=== PATIENT | female | born 1960 | race Caucasian/White ===

== ENCOUNTER → 2017-05-02 | Outpatient (CLI) | payer OTHER ==
[~2017-05-02] MED LIST: 0; ACET325 PO; ALBU90OI INH; ALBU90OI6 INH; ALBU90OI61 INH; AMOCLA500 PO; ATOR20 PO; BUPR150T2; CELE100 PO; CYCL10 PO; DULO30; DULO60 PO; EFFEXOR; GLUCOSAMINE CH1 EACH PO; HYDACE10 PO; HYDACE10B PO; HYDACE5 PO; LEVSOD50 PO; LITH300C; MELO7.5 PO; MONT10T PO; NAPR500; NAPR500 PO; OLAN5 PO; OMEP20ER PO; OMEPRAZOLE MAGN20 MG PO; OPTIFLEX-C400 MG PO; QUIN200; RANI150; RISE35 PO; RIZA10MLT; ROSU10TA; ROSU10TA PO; ROXICODONE5 MG PO; TETR250; TRAZ100 PO; TRAZ50; Verotin-Gr Cap1 EACH PO; [UNRECOGNIZED DRUG - REMARK]; [UNRECOGNIZED DRUG - REMARK]; [UNRECOGNIZED DRUG - REMARK]
[2017-05-04 13:01] LABS: HPV Genotype 16 Not Detected (NOTDET); HPV Genotype 18 Not Detected (NOTDET)
[2017-05-09 09:27] LABS: HPV High Risk Other Not Detected (NOTDET)
== END | disposition home or self-care (01) ==
LOC: LAB 14:04
PROVIDERS: Nurse Practitioner Women's Health
DX: Z12.4 Encounter for screening for malignant neoplasm of cervix (principal); Z91.89 Other specified personal risk factors, not elsewhere classified
CPT/HCPCS: 87624; G0123

== ENCOUNTER → 2018-05-06 | Outpatient (CLI) | payer OTHER ==
[~2018-05-06] MED LIST changes: +METF500C; +Metformin HCl500 MG PO; +PROGESTERONE100 MG PO
[2018-05-08 15:08] LABS: HPV 16 Negative (Negative); HPV 18 Negative (Negative); HPV OTHER HR TYPES Negative (Negative)
== END ==
LOC: LAB 09:06 → LAB SHORT 09:06
PROVIDERS: Nurse Practitioner Women's Health
DX: Z12.4 Encounter for screening for malignant neoplasm of cervix (principal)
CPT/HCPCS: 87624; G0123

== ENCOUNTER 2018-05-17 07:33 | Day surgery (SDC) | payer OTHER ==
[~2018-05-17] VITALS: Ht 165.1 cm; Wt 102.2 kg
[~2018-05-17 07:33] MED LIST changes: -METF500C; -Metformin HCl500 MG PO; -PROGESTERONE100 MG PO
[2018-05-17] MEDS ORDERED: METF500C (08:25)
[2018-05-17] MEDS ORDERED: PROGESTERONE100 MG PO (08:26)
--- NOTE | 2018-05-17 13:35 | NUR ---
05/17/18 1335 Patricia Shahid LATE ENTRY FOR TODAY AT 0945 DR. GARCIA AWARE OF PATIENT ELEVATED BP, NO ORDERS RECEIVE
[2018-06-18] MEDS ORDERED: Metformin HCl500 MG PO (08:46)
== END 2018-05-17 10:02 | disposition home or self-care (01) ==
LOC: ORSCSDS 07:33
PROVIDERS: Internal Medicine Gastroenterology
PROC: 0D758ZZ Dilation of Esophagus, Via Natural or Artificial Opening Endoscopic (ICD-10-PCS; principal; 2018-05-17 09:00)
DX: R13.10 Dysphagia, unspecified (principal); I10 Essential (primary) hypertension; E11.9 Type 2 diabetes mellitus without complications; J45.909 Unspecified asthma, uncomplicated; E66.01 Morbid (severe) obesity due to excess calories; Z68.37 Body mass index [BMI] 37.0-37.9, adult; Z79.899 Other long term (current) drug therapy
CPT/HCPCS: 82947; J0330; J1980; J2405; J7120

== ENCOUNTER 2018-07-02 08:02 | Day surgery (SDC) | payer OTHER ==
[~2018-07-02] VITALS: Ht 162.6 cm; Wt 103.0 kg
[~2018-07-02 08:02] MED LIST changes: +METF500C; +Metformin HCl500 MG PO; +PROGESTERONE100 MG PO
== END 2018-07-02 10:25 | disposition home or self-care (01) ==
LOC: ORSCSDS 08:02
PROVIDERS: Internal Medicine Gastroenterology
PROC: 0D757ZZ Dilation of Esophagus, Via Natural or Artificial Opening (ICD-10-PCS; principal; 2018-07-02 09:30)
PROC: 0DJ08ZZ Inspection of Upper Intestinal Tract, Via Natural or Artificial Opening Endoscopic (ICD-10-PCS; principal; 2018-07-02 09:30)
DX: R13.10 Dysphagia, unspecified (principal); K21.9 Gastro-esophageal reflux disease without esophagitis; I10 Essential (primary) hypertension; J44.9 Chronic obstructive pulmonary disease, unspecified; G47.33 Obstructive sleep apnea (adult) (pediatric); E66.01 Morbid (severe) obesity due to excess calories; Z68.39 Body mass index [BMI] 39.0-39.9, adult; Z79.899 Other long term (current) drug therapy
CPT/HCPCS: 82947; J2250; J2765; J3010; J7120

== ENCOUNTER 2018-08-24 07:34 | Inpatient (IN) | payer OTHER ==
[~2018-08-24] VITALS: Ht 162.6 cm; Wt 102.1 kg
[~2018-08-24 07:34] MED LIST changes: +LEVSOD25 PO; -LEVSOD50 PO
[2018-08-24 08:31] LABS: Hematocrit 47.3 % (33.0-51.0); Hemoglobin 16.5 g/dL (11.5-16.0); Mean Corpuscular HGB 34.8 pg (26.0-34.0); Mean Corpuscular HGB Conc 34.9 g/dL (31.5-36.5); Mean Corpuscular Volume 100 fL (80-100); Mean Platelet Volume 10.9 fL (9.1-12.4); Platelet Count 246 K/mm3 (150-400); RDW Coefficient Variation 12.3 % (11.7-14.2); RDW Standard Deviation 45.6 fL (35.1-46.3); Red Blood Cell Count 4.74 M/mm3 (3.80-5.20)
[2018-08-24 08:58] LABS: BAND PERCENT MAN 1 % (0-8); BASOPHILS PERCENT MAN 0 % (0-2); EOSINOPHILS PERCENT MAN 0 % (0-6); LYMPHOCYTES % ATYPICAL MANUAL 6 % (0-0); LYMPHOCYTES ABSOLUTE MAN 1.88 K/mm3 (0.84-5.20); LYMPHOCYTES PERCENT MAN 10 % (21-46); MONOCYTES ABSOLUTE MAN 0.82 K/mm3 (0.16-1.47); MONOCYTES PERCENT MAN 7 % (4-13); NEUTROPHILS ABSOLUTE MAN 9.08 K/mm3 (1.96-9.15); SEG NEUTROPHILS PERCENT MAN 76 % (41-73); TOTAL CELLS COUNTED 100
[2018-08-24] MEDS ORDERED: DIPH50 PO (09:36)
[2018-08-24] MEDS ORDERED: GLIP10ER PO (09:36)
[2018-08-24 10:30] LABS: Alanine Aminotransfer (ALT/SGP 97 U/L (12-78); Albumin, Blood 4.1 g/dL (3.4-5.0); Alk Phos 249 U/L (50-136); Anion Gap 13 mmol/L (6-16); Aspartate Aminotrans (AST/SGOT 68 U/L (12-37); Bilirubin, Total 1.2 mg/dL (0.1-1.0); Blood Urea Nitrogen 13 mg/dL (8-24); Bun/Creatinine Ratio 18.8 (12.0-20.0); CO2, Blood 28 mmol/L (21-32); Calcium, Blood 9.2 mg/dL (8.5-10.1); Chloride, Blood 97 mmol/L (98-108); Creatinine, Blood 0.69 mg/dL (0.40-1.00); Globulin, Blood 4.3 g/dL (2.2-4.0); Glomerular Filtration Rate >60 (60-); Glucose, Blood 164 mg/dL (70-99); Potassium, Blood 3.1 mmol/L (3.5-5.5); Sodium, Blood 138 mmol/L (136-145); Total Protein, Blood 8.4 g/dL (6.4-8.2); Troponin I <0.015 ng/mL (0.000-0.040)
[2018-08-24] MEDS ORDERED: BUDE10.22 INH (12:08)
[2018-08-24] MEDS ORDERED: MELA3 PO (12:08)
[2018-08-24] MEDS ORDERED: Cortisporin Ear10 M1 BOTHEARS (12:09)
--- NOTE | 2018-08-24 14:31 | NUR ---
PATIENT ARRIVED TO UNIT AT 1418. A&O X4 SBA TO TRANSFER TO BED. C/O SOB. O2 @ 2L NC. DENIES AIN. RN WILL CONTINUE TO MONITOR.
--- NOTE | 2018-08-24 18:44 | NUR ---
SHIFT SUMMARY PATIENT A&O X4, INDEP TO BATHROOM. DENIES ANY PAIN. C/O SOB W/ EXERTION. SBA TO BATHROOM. MEDICATED PER E JUN. 02 @ 3L NC, SATS >90%. NO ACUTE CHANGES THIS SHIFT. BED IN LOWEST POSITION, CALL LIGHT WITHIN REACH.
--- NOTE | 2018-08-24 21:57 | NUR ---
pATIENT REFUSED HER ZYPREXA TONIGHT - SHE SAID SHE TAKES IT IN THE AM. CALLED PHARMACY TO HAVE IT RETIMED.. PATIENT ALSO REQUESTING MELATONIN 6 MG FOR SLEEP. THIS IS THE DOSE SHE TYAKES AT HOME.- WILL JUMP INTO NEXT CALLT O HOSPITALIST
[2018-08-25 05:02] LABS: Hematocrit 43.7 % (33.0-51.0); Hemoglobin 14.9 g/dL (11.5-16.0); Mean Corpuscular HGB 34.6 pg (26.0-34.0); Mean Corpuscular HGB Conc 34.1 g/dL (31.5-36.5); Mean Corpuscular Volume 101 fL (80-100); Mean Platelet Volume 11.3 fL (9.1-12.4); Platelet Count 273 K/mm3 (150-400); RDW Coefficient Variation 12.2 % (11.7-14.2); RDW Standard Deviation 46.3 fL (35.1-46.3); Red Blood Cell Count 4.31 M/mm3 (3.80-5.20); White Blood Cell Count 9.61 K/mm3 (4.00-11.30)
[2018-08-25 05:50] LABS: Anion Gap 10 mmol/L (6-16); Blood Urea Nitrogen 19 mg/dL (8-24); Bun/Creatinine Ratio 30.9 (12.0-20.0); CO2, Blood 26 mmol/L (21-32); Calcium, Blood 9.4 mg/dL (8.5-10.1); Chloride, Blood 102 mmol/L (98-108); Creatinine, Blood 0.61 mg/dL (0.40-1.00); Glomerular Filtration Rate >60 (60-); Glucose, Blood 182 mg/dL (70-99); Potassium, Blood 3.4 mmol/L (3.5-5.5); Sodium, Blood 138 mmol/L (136-145)
--- NOTE | 2018-08-25 16:42 | NUR ---
SHIFT SUMMARY PT AXO, PLEASANT AND COOPERATIVE WITH CARE. WHISPERING THIS SHIFT. COMPLAINED OF SORE THROAT, SHAKING, AND HEADACHE. DR PENALOZA AWARE, NEW ORDERS INITIATED. PT HAD SOME BLOOD TINGED SNOT IN HER KLEENEX, HUMIDIFIER ADDED TO O2 TUBING, RT AWARE. CIWA AT 11 WAS 7 THEN WAS 4 AT 1548. PT UP INDEPENDENTLY IN ROOM, CALLS APPROPRIATELY, EDUCATED ON FALL PREVENTION. BED IN LOW POSITION, CALL LIGHT WITHIN REACH. ON 3L L O2 VIA NC. DENIES N/V
[2018-08-26 05:34] LABS: Hematocrit 44.4 % (33.0-51.0); Hemoglobin 14.8 g/dL (11.5-16.0); Mean Corpuscular HGB 34.3 pg (26.0-34.0); Mean Corpuscular HGB Conc 33.3 g/dL (31.5-36.5); Mean Corpuscular Volume 103 fL (80-100); Mean Platelet Volume 10.9 fL (9.1-12.4); Platelet Count 296 K/mm3 (150-400); RDW Coefficient Variation 12.3 % (11.7-14.2); RDW Standard Deviation 46.6 fL (35.1-46.3); Red Blood Cell Count 4.32 M/mm3 (3.80-5.20); White Blood Cell Count 12.59 K/mm3 (4.00-11.30)
[2018-08-26 05:50] LABS: Albumin, Blood 3.7 g/dL (3.4-5.0); Anion Gap 8 mmol/L (6-16); Blood Urea Nitrogen 29 mg/dL (8-24); Bun/Creatinine Ratio 41.5 (12.0-20.0); CO2, Blood 26 mmol/L (21-32); Calcium, Blood 9.1 mg/dL (8.5-10.1); Chloride, Blood 105 mmol/L (98-108); Glomerular Filtration Rate >60 (60-); Glucose, Blood 169 mg/dL (70-99); Phosphorus, Blood 4.1 mg/dL (2.5-4.9); Potassium, Blood 3.8 mmol/L (3.5-5.5); Sodium, Blood 139 mmol/L (136-145)
--- NOTE | 2018-08-26 19:01 | NUR ---
SHIFT SUMMARY- PT DENIES PAIN. DENIES SOB. RESP E/U ON 3L O2 NC. PT C/O COUGH THIS PM. MEDS GIVEN PER EMAR. DENIES N/V. SBA TO THE BATHROOM. NO OTHER SIGNIFICANT CHANGES THIS SHIFT.
--- NOTE | 2018-08-27 06:16 | NUR ---
SHIFT SUMMARY: NO ACUTE CHANGES TONIGHT.PT ON 3L VIA NC, ATTEMPTED TO WEEN DOWN TO 2L VIA NC HOWEVER PT O2 SATS <90%. A&O X 4, INDEPEDENT IN RM. COARSE WHEEZE T/O ALL LUNG MAYA. PRN TESSALON PERLES AND ROBITUSSIN ADMINISTERED FOR DRY COUGH. PT C/O HEAD R/T COUGH; ICE PACK APPLIED TO HEAD PER PT REQUEST. PT WILL D/C AFTER COMPLETION OF HOME O2 EVAL. WILL CONT TO MONITOR AND PROVIDE CARE UNTIL PRESUMED BY ONCOMING RN.
--- NOTE | 2018-08-27 14:12 | NUR ---
PT OXYGEN PT DROPPED TO 2L OF O2 VIA NC. PT SATING IN AT 93-94 ON THIS LEVEL. WITHOUT O2 PT WAS SATING AT 93. PT STATED SHE FELT THAT SHE STILL NEEDED O2 HOWEVER. WILL CONTINUE TO MONITOR.
--- NOTE | 2018-08-27 17:07 | NUR ---
SHIFT SUMMARY NO CHANGES IN ASSESSMENT AT THIS TIME. PT ON 2L O2 VIA NC. SATING IN THE 90S. VSS. PT GIVEN ONE TIME DOSE OF LASIX. PT STATED SHE VOIDED 5 TIMES. WILL CONTINUE TO MONITOR UNTIL TURNOVER IS COMPLETE. PT IN NEED OF HOME O2 EVAL BEFORE DC.
--- NOTE | 2018-08-28 00:06 | NUR ---
ANCILLARY SERVICES MANAGER CHARTS PM VITALS BEING ON ROOM AIR--ERROR. PT IS ON 2L VIA NC. SATTING @ 93-94%.
--- NOTE | 2018-08-28 05:08 | NUR ---
O2 WEENING TRIAL PT WEENED DOWN TO 1L VIA NC THIS AM. O2 SATS 92-32%. PT TOLERATES WELL, DENIES SOB. WILL CONT TO MONITOR.
--- NOTE | 2018-08-28 06:17 | NUR ---
SHIFT SUMMARY: PT CONT TO HAVE COARSE, WHEEZE LS T/O ALL LUNG MAYA. WEENED DOWN TO 1L VIA NC THIS AM; PT TOLERATING WELL. O2 SATS >92%. TESSALON PERLES AND ROBITUSSIN ADMINISTERED 2X THIS SHIFT FOR DRY COUGH. BLOOD SUGAR 260 TONIGHT; ADMINISTERED INSULIN PER LOW SS. INDEPEDENT IN RM, A&O, PLEASANT/COOPERATIVE. NO OTHER CHANGES TO REPORT, PT POSSIBLE D/C HOME TODAY. WILL CONT TO MONITOR AND PROVIDE CARE UNTIL PRESUMED BY ONCOMING RN.
[2018-08-28] MEDS ORDERED: BENZ100A PO (13:54)
[2018-08-28] MEDS ORDERED: LISI20 PO (13:56)
[2018-08-28] MEDS ORDERED: CEPACOL SORE T1 EACH MM (13:56)
[2018-08-28] MEDS ORDERED: GNP ONE DAILY400 MCG (13:58)
[2018-08-28] MEDS ORDERED: PRED10 PO (14:01)
[2018-08-28] MEDS ORDERED: ALBU3IS INH (14:02)
[2018-08-28] MEDS ORDERED: DULERA 200 MCG/13 GM INH (14:06)
--- NOTE | 2018-08-28 16:05 | NUR ---
PT DISCHARGED PT DISCHARGED IN STABLE CONDITION WITH VSS. PT EDUCATED ON DC INSTRUCTIONS * STATED NOP FURTHER QUESTIONS. PT IV REMOVED & INTACT. [facility] PT WHEELED OUT BY PROGRAM ENGAGEMENT DIRECTOR & DRIVEN HOME BY SIGNIFICANT OTHER. PT SENT HOME WITH PRINTED DC INSTRUCTIONS.
== END 2018-08-28 15:57 | disposition home or self-care (01) | DRG 189 ==
LOC: ER 07:34 → ERHOLD 11:52 → MEDS 11:52
PROVIDERS: Physician Assistant; ADMIT Internal Medicine
DX: J96.01 Acute respiratory failure with hypoxia (principal); J44.1 Chronic obstructive pulmonary disease with (acute) exacerbation; E03.9 Hypothyroidism, unspecified; F10.20 Alcohol dependence, uncomplicated; E66.9 Obesity, unspecified; G47.33 Obstructive sleep apnea (adult) (pediatric); E11.9 Type 2 diabetes mellitus without complications; K21.9 Gastro-esophageal reflux disease without esophagitis; F41.9 Anxiety disorder, unspecified; F32.9 Major depressive disorder, single episode, unspecified; E78.5 Hyperlipidemia, unspecified; M79.7 Fibromyalgia; Z87.891 Personal history of nicotine dependence; Z68.38 Body mass index [BMI] 38.0-38.9, adult
CPT/HCPCS: 36415; 71045; 71250; 80048; 80053; 80069; 82947; 83880; 84443; 84484; 85025; 85027; 93005; 93010; 94640; 94644; 94667; 94760; 94761; 96374; 98960; 99285-25; J1650; J1940; J2920; J2930

== ENCOUNTER 2018-10-02 13:32 | Emergency (ER) | payer OTHER ==
[~2018-10-02] VITALS: Ht 162.6 cm; Wt 102.1 kg
[~2018-10-02 13:32] MED LIST changes: +ALBU3IS INH; +BENZ100A PO; +BUDE10.22 INH; +CEPACOL SORE T1 EACH MM; +Cortisporin Ear10 M1 BOTHEARS; +DIPH50 PO; +DULERA 200 MCG/13 GM INH; +GLIP10ER PO; +GNP ONE DAILY400 MCG; +LISI20 PO; +MELA3 PO; +PRED10 PO
[2018-10-02 13:48] LABS: Source, Urine Clean Catch
[2018-10-02 13:53] LABS: Appearance, Urine Clear (Clear); Bilirubin, Urine Neg (Neg); Blood, Urine 1+ (Neg); Color, Urine Yellow (P-Yellow); Glucose Qualitative, Urine Neg (Neg); Ketones, Urine Neg (Neg); Leukocyte Esterase, Urine 1+ (Neg); Nitrite, Urine Neg (Neg); Protein, Urine 2+ (Neg); Urobilinogen, Urine NORM (Normal)
[2018-10-02 14:26] LABS: Bacteria Few /hpf; Red Blood Cells, Urine 0-2 /hpf (0-2); Squamous Epithelial Cells Few /hpf (Few); White Blood Cells, Urine 0-2 /hpf (0-5)
[2018-10-02 14:32] LABS: BASOPHILS ABSOLUTE AUTO 0.05 K/mm3 (0.00-0.23); BASOPHILS PERCENT AUTO 1 % (0-2); EOSINOPHILS ABSOLUTE AUTO 0.04 K/mm3 (0.00-0.68); EOSINOPHILS PERCENT AUTO 0 % (0-6); Hematocrit 41.4 % (33.0-51.0); Hemoglobin 13.8 g/dL (11.5-16.0); IMMATURE GRAN ABSOLUTE AUTO 0.04 K/mm3 (0.00-0.10); IMMATURE GRAN PERCENT AUTO 0 % (0-1); LYMPHOCYTES ABSOLUTE AUTO 1.95 K/mm3 (0.84-5.20); LYMPHOCYTES PERCENT AUTO 22 % (21-46); MONOCYTES ABSOLUTE AUTO 0.64 K/mm3 (0.16-1.47); MONOCYTES PERCENT AUTO 7 % (4-13); Mean Corpuscular HGB 34.2 pg (26.0-34.0); Mean Corpuscular HGB Conc 33.3 g/dL (31.5-36.5); Mean Corpuscular Volume 103 fL (80-100); Mean Platelet Volume 10.3 fL (9.1-12.4); NEUTROPHILS ABSOLUTE AUTO 6.23 K/mm3 (1.96-9.15); NEUTROPHILS PERCENT AUTO 70 % (41-73); Platelet Count 254 K/mm3 (150-400); RDW Coefficient Variation 13.3 % (11.7-14.2); RDW Standard Deviation 50.4 fL (35.1-46.3); Red Blood Cell Count 4.03 M/mm3 (3.80-5.20); White Blood Cell Count 8.95 K/mm3 (4.00-11.30)
[2018-10-02 14:53] LABS: Alanine Aminotransfer (ALT/SGP 66 U/L (12-78); Albumin, Blood 4.3 g/dL (3.4-5.0); Albumin/Globulin Ratio 1.2 (0.8-1.8); Alk Phos 153 U/L (50-136); Anion Gap 7 mmol/L (6-16); Aspartate Aminotrans (AST/SGOT 37 U/L (12-37); Bilirubin, Total 1.2 mg/dL (0.1-1.0); Blood Urea Nitrogen 25 mg/dL (8-24); Bun/Creatinine Ratio 31.5 (12.0-20.0); CO2, Blood 25 mmol/L (21-32); Calcium, Blood 9.5 mg/dL (8.5-10.1); Chloride, Blood 108 mmol/L (98-108); Creatinine, Blood 0.79 mg/dL (0.40-1.00); Globulin, Blood 3.6 g/dL (2.2-4.0); Glomerular Filtration Rate >60 (60-); Glucose, Blood 97 mg/dL (70-99); Potassium, Blood 4.3 mmol/L (3.5-5.5); Sodium, Blood 140 mmol/L (136-145); Total Protein, Blood 7.9 g/dL (6.4-8.2)
== END 2018-10-02 16:20 | disposition home or self-care (01) ==
LOC: ER 13:32
PROVIDERS: Physician Assistant
DX: R10.13 Epigastric pain (principal); F10.10 Alcohol abuse, uncomplicated; J45.909 Unspecified asthma, uncomplicated; F41.9 Anxiety disorder, unspecified; Z87.891 Personal history of nicotine dependence; Z88.5 Allergy status to narcotic agent; Z88.8 Allergy status to other drugs, medicaments and biological substances; Z88.2 Allergy status to sulfonamides; Z88.1 Allergy status to other antibiotic agents; Z79.899 Other long term (current) drug therapy; Z79.84 Long term (current) use of oral hypoglycemic drugs
CPT/HCPCS: 36415; 71046; 76705; 80053; 81001; 83690; 85025; 87086; 96374; 96375; 99284-25; J2405; J3010

== ENCOUNTER 2019-03-11 13:17 | Day surgery (SDC) | payer OTHER ==
[~2019-03-11] VITALS: Ht 162.6 cm; Wt 100.7 kg
[2019-03-11] MEDS ORDERED: Lisinopril2.5 MG (13:49)
--- NOTE | 2019-03-11 14:50 | NUR ---
03/11/19 7690 Priscila Corona PROCEDURE TERMINATED. PT HAD LYRNGOSPASM IMMEDIATELY UPON ENTRY OF SCOPE DESPITE 4% INHALED LIDOCAINE.
[2019-05-07] MEDS ORDERED: OMEPRAZOLE20 MG PO (10:53)
[2019-05-07] MEDS ORDERED: ALBU90OI INH (10:53)
[2019-05-07] MEDS ORDERED: MONT10T PO (10:53)
[2019-05-07] MEDS ORDERED: ATOR20 PO (10:53)
[2019-05-07] MEDS ORDERED: Cymbalta60 MG PO (10:53)
[2019-05-07] MEDS ORDERED: OLAN5 PO (10:54)
[2019-05-07] MEDS ORDERED: LEVSOD50 PO (10:54)
[2019-05-07] MEDS ORDERED: PROGESTERONE100 MG PO (10:54)
[2019-05-07] MEDS ORDERED: DULO60 PO (10:55)
[2019-05-07] MEDS ORDERED: LISI20 PO (10:55)
[2019-05-07] MEDS ORDERED: DULERA 200 MCG/13 GM INH (10:55)
[2019-05-07] MEDS ORDERED: METF500 PO (10:55)
[2019-05-07] MEDS ORDERED: MELATONIN10 M3 PO (10:56)
[2019-05-22] MEDS ORDERED: MULTIVITAMIN PO (16:23)
[2019-05-22] MEDS ORDERED: LISI20 PO (16:24)
[2019-05-22] MEDS ORDERED: POTASSIUM PO (16:27)
[2019-05-22] MEDS ORDERED: MUCOSA400 MG PO (16:27)
== END 2019-03-11 14:39 | disposition home or self-care (01) ==
LOC: ORSCSDS 13:17
PROVIDERS: Internal Medicine Gastroenterology
PROC: 0DJ08ZZ Inspection of Upper Intestinal Tract, Via Natural or Artificial Opening Endoscopic (ICD-10-PCS; principal; 2019-03-11 14:30)
DX: R10.11 Right upper quadrant pain (principal); Z53.9 Procedure and treatment not carried out, unspecified reason; I10 Essential (primary) hypertension; J45.909 Unspecified asthma, uncomplicated; G47.33 Obstructive sleep apnea (adult) (pediatric); E11.9 Type 2 diabetes mellitus without complications; E66.9 Obesity, unspecified; Z68.39 Body mass index [BMI] 39.0-39.9, adult; Z79.899 Other long term (current) drug therapy; Z79.84 Long term (current) use of oral hypoglycemic drugs
CPT/HCPCS: 82947; J2001; J2250; J2704; J7120

== ENCOUNTER → 2019-03-25 | Outpatient (CLI) | payer OTHER ==
[~2019-03-25] MED LIST changes: +Lisinopril2.5 MG
[2019-03-26 14:24] LABS: Stool Occult Bld Immuno 1 Negative (NEGATIVE)
== END | disposition home or self-care (01) ==
LOC: LAB SHORT 15:49 → LAB 15:49
PROVIDERS: Family Medicine
DX: Z12.11 Encounter for screening for malignant neoplasm of colon (principal)
CPT/HCPCS: G0328

== ENCOUNTER 2019-05-13 11:16 | Day surgery (SDC) | payer OTHER ==
[~2019-05-13] VITALS: Ht 162.6 cm; Wt 99.8 kg
[~2019-05-13 11:16] MED LIST changes: +Cymbalta60 MG PO; +LEVSOD50 PO; +MELATONIN10 M3 PO; +METF500 PO; +OMEPRAZOLE20 MG PO
--- NOTE | 2019-05-13 13:27 | NUR ---
05/13/19 1327 Ivette Howard BREATHING TREATMENT DONE PER DR BRADSHAW'S ORDERS.
--- NOTE | 2019-05-13 14:13 | NUR ---
05/13/19 1413 Anabel Edward entry: REGLAN AND ZOFRAN WERE GIVEN IN PAR PER VERBAL ORDER FROM DR. HARMONY PHILIP PER OR PROTOCOL.
[2019-05-22] MEDS ORDERED: MULTIVITAMIN PO (16:23)
[2019-05-22] MEDS ORDERED: LISI20 PO (16:24)
[2019-05-22] MEDS ORDERED: MUCOSA400 MG PO (16:27)
[2019-05-22] MEDS ORDERED: POTASSIUM PO (16:27)
== END 2019-05-13 14:45 | disposition home or self-care (01) ==
LOC: ORSCSDS 11:16
PROVIDERS: Internal Medicine Gastroenterology
PROC: 0DB58ZX Excision of Esophagus, Via Natural or Artificial Opening Endoscopic, Diagnostic (ICD-10-PCS; principal; 2019-05-13 12:45)
PROC: 0DB68ZX Excision of Stomach, Via Natural or Artificial Opening Endoscopic, Diagnostic (ICD-10-PCS; principal; 2019-05-13 12:45)
PROC: 0DB98ZX Excision of Duodenum, Via Natural or Artificial Opening Endoscopic, Diagnostic (ICD-10-PCS; principal; 2019-05-13 12:45)
DX: R10.11 Right upper quadrant pain (principal); R19.7 Diarrhea, unspecified; K21.9 Gastro-esophageal reflux disease without esophagitis; I10 Essential (primary) hypertension; E11.9 Type 2 diabetes mellitus without complications; E78.5 Hyperlipidemia, unspecified; J44.9 Chronic obstructive pulmonary disease, unspecified; Z87.891 Personal history of nicotine dependence; E66.01 Morbid (severe) obesity due to excess calories; Z68.37 Body mass index [BMI] 37.0-37.9, adult; Z79.899 Other long term (current) drug therapy
CPT/HCPCS: 82947; 88305; 88342; J0330; J2001; J2405; J2704; J2765; J3010; J7120

== ENCOUNTER 2019-05-28 08:05 | Day surgery (SDC) | payer OTHER ==
[~2019-05-28] VITALS: Ht 162.6 cm; Wt 98.7 kg
[~2019-05-28 08:05] MED LIST changes: +MUCOSA400 MG PO; +MULTIVITAMIN PO; +POTASSIUM PO
--- NOTE | 2019-05-28 09:23 | NUR ---
PT INTO DAY SURGERY VIA WC. History, Chart, Medications and Allergies reviewed before start of procedure. SLIGHT EXPIRATORY WHEEZE IN RIGHT UPPER LUNG, ALL OTHERS CTA. Patient confirms NPO status and agrees with scheduled surgery.
--- NOTE | 2019-05-28 15:56 | NUR ---
pt working with therapy at this time. spouse at bedside
--- NOTE | 2019-05-28 18:00 | NUR ---
SHIFT SUMMARY POD 0 S/P R TKA, BASHIR WRAP C/D/I WITH NO DRAINAGE NOTE. TEDS, SCDS, AND POLAR PACK IN PLACE. PAIN MANAGED WITH PO MEDICATION. WORKED WITH THERAPY, UP IN CHAIR MOST OF SHIFT. AMBULATED TO BATHROOM 2X. TOLERATING REGULAR DIET, DENIES N/V. VSS. WILL CONT. MONITOR AND GIVE REPORT TO ONCOMING RN.
--- NOTE | 2019-05-29 04:04 | NUR ---
SHIFT SUMMARY: PT POD #1 FOR RT TKA. DRESSING CDI WITH POLAR PACK IN PLACE. PAIN BEING MANAGED WITH OXY Q4 AND SCHED TORADOL AND TYLENOL PER EMAR. PT OUT OF BED TO BATHROOM WITH ONE ASSIST AND FWW. VOIDING SMALL AMOUNTS EACH TIME. CARLO PO AND DENIES N/V. PT CURRENTLY RESTING WITH HOME CPAP ON. PLAN FOR DISCHARGE TODAY.
[2019-05-29 05:52] LABS: BASOPHILS ABSOLUTE AUTO 0.03 K/mm3 (0.00-0.23); BASOPHILS PERCENT AUTO 0 % (0-2); EOSINOPHILS ABSOLUTE AUTO 0.02 K/mm3 (0.00-0.68); EOSINOPHILS PERCENT AUTO 0 % (0-6); Hematocrit 34.5 % (33.0-51.0); Hemoglobin 11.5 g/dL (11.5-16.0); IMMATURE GRAN ABSOLUTE AUTO 0.03 K/mm3 (0.00-0.10); IMMATURE GRAN PERCENT AUTO 0 % (0-1); LYMPHOCYTES ABSOLUTE AUTO 1.32 K/mm3 (0.84-5.20); LYMPHOCYTES PERCENT AUTO 12 % (21-46); MONOCYTES ABSOLUTE AUTO 0.83 K/mm3 (0.16-1.47); MONOCYTES PERCENT AUTO 8 % (4-13); Mean Corpuscular HGB Conc 33.3 g/dL (31.5-36.5); Mean Corpuscular Volume 105 fL (80-100); Mean Platelet Volume 10.5 fL (9.1-12.4); NEUTROPHILS ABSOLUTE AUTO 8.73 K/mm3 (1.96-9.15); NEUTROPHILS PERCENT AUTO 80 % (41-73); Platelet Count 213 K/mm3 (150-400); RDW Coefficient Variation 12.6 % (11.7-14.2); Red Blood Cell Count 3.29 M/mm3 (3.80-5.20); White Blood Cell Count 10.96 K/mm3 (4.00-11.30)
[2019-05-29 06:15] LABS: Magnesium, Blood 1.7 mg/dL (1.6-2.4)
[2019-05-29 06:18] LABS: Anion Gap 5 mmol/L (6-16); Blood Urea Nitrogen 23 mg/dL (8-24); Bun/Creatinine Ratio 26.8 (12.0-20.0); CO2, Blood 27 mmol/L (21-32); Calcium, Blood 8.5 mg/dL (8.5-10.1); Chloride, Blood 105 mmol/L (98-108); Creatinine, Blood 0.86 mg/dL (0.40-1.00); Glomerular Filtration Rate >60 (60-); Glucose, Blood 134 mg/dL (70-99); Potassium, Blood 4.4 mmol/L (3.5-5.5); Sodium, Blood 137 mmol/L (136-145)
--- NOTE | 2019-05-29 09:38 | NUR ---
05/29/19 0938 Olga Camejo VERIFICATIONS: EDIT CHART.
[2019-05-29] MEDS ORDERED: ENOX40I SC (14:40)
[2019-05-29] MEDS ORDERED: Bactrim Ds Tab1 EACH PO (14:41)
[2019-05-29] MEDS ORDERED: ASPI325EC PO (14:41)
--- NOTE | 2019-05-29 15:30 | NUR ---
PATIENT D/C'D HOME WITH SO AT THIS TIME. PATIENT STATES UNDERSTANDING OF MEDS, WOUND CARE, OP PT, F/U APPT, ETC. TOLERATING PO. PATIENT STATES PAIN CONTROLLED WITH PO PAIN MED. DRESSING TO R KNEE D&I. CIRC CHECKS WNL. NO ACUTE CHANGES OR C/O AT THIS TIME.
--- NOTE | 2019-05-29 15:59 | NUR ---
Advance Directive education conducted. Patient is in the DC process and Abigail, who was introduced as her is present. Patient expressed interest so I explained the purpose and process of the advance directive, I handed patient the booklet and went through the sections and explained the filing process. Patient stated that she and Abigail would go through the material and then file it with her PCP.
[2019-05-30] MEDS ORDERED: Voltaren100 GM TOP (02:24)
== END 2019-05-29 15:32 | disposition home or self-care (01) ==
LOC: ORSCMMR 08:05 → ORD 09:45 → ORSCMMR 09:45 → SURS 12:32 → ORSCMMR 05-29 15:32
PROVIDERS: Orthopaedic Surgery
PROC: 0SRC0J9 Replacement of Right Knee Joint with Synthetic Substitute, Cemented, Open Approach (ICD-10-PCS; principal; 2019-05-28 09:45)
PROC: 8E0YXBZ Computer Assisted Procedure of Lower Extremity (ICD-10-PCS; principal; 2019-05-28 09:45)
DX: M17.11 Unilateral primary osteoarthritis, right knee (principal); I10 Essential (primary) hypertension; E11.9 Type 2 diabetes mellitus without complications; J44.9 Chronic obstructive pulmonary disease, unspecified; Z87.891 Personal history of nicotine dependence; Z79.84 Long term (current) use of oral hypoglycemic drugs; F41.8 Other specified anxiety disorders; Z79.899 Other long term (current) drug therapy
CPT/HCPCS: 36415; 73560-RT; 80048; 82947; 83735; 85025; 88300; 97110; 97116; 97162; 97530; C1713; C1776; J0171; J0690; J0735; J1650; J1885; J2250; J2795; J3370; J7120

== ENCOUNTER 2019-10-21 12:47 | Day surgery (SDC) | payer OTHER ==
[~2019-10-21] VITALS: Ht 165.1 cm; Wt 97.4 kg
[~2019-10-21 12:47] MED LIST changes: +ASPI325EC PO; +Bactrim Ds Tab1 EACH PO; +ENOX40I SC; +Voltaren100 GM TOP
--- NOTE | 2019-10-21 13:34 | NUR ---
10/21/19 1334 Abigail Fagan TWO IV ATTEMPTS. ONE IN RW, ONE IN RH, VALVE. ONE SUCCESSFUL IN RAC PT TOW
== END 2019-10-21 15:04 | disposition home or self-care (01) ==
LOC: ORSCSDS 12:47
PROVIDERS: Internal Medicine Gastroenterology
PROC: 0DBE8ZX Excision of Large Intestine, Via Natural or Artificial Opening Endoscopic, Diagnostic (ICD-10-PCS; principal; 2019-10-21 14:00)
DX: R10.11 Right upper quadrant pain (principal); R19.7 Diarrhea, unspecified; I10 Essential (primary) hypertension; E11.9 Type 2 diabetes mellitus without complications; G47.33 Obstructive sleep apnea (adult) (pediatric); Z87.891 Personal history of nicotine dependence; E66.9 Obesity, unspecified; Z68.35 Body mass index [BMI] 35.0-35.9, adult; Z79.84 Long term (current) use of oral hypoglycemic drugs; Z79.899 Other long term (current) drug therapy
CPT/HCPCS: 82947; 88305; J2704; J7120

== ENCOUNTER 2020-04-16 16:44 | Emergency (ER) | payer OTHER ==
[~2020-04-16] VITALS: Ht 162.6 cm; Wt 98.4 kg
[2020-04-16 17:17] LABS: BASOPHILS ABSOLUTE AUTO 0.04 K/mm3 (0.00-0.23); BASOPHILS PERCENT AUTO 1 % (0-2); EOSINOPHILS ABSOLUTE AUTO 0.06 K/mm3 (0.00-0.68); EOSINOPHILS PERCENT AUTO 1 % (0-6); Hemoglobin 11.9 g/dL (11.5-16.0); IMMATURE GRAN ABSOLUTE AUTO 0.04 K/mm3 (0.00-0.10); IMMATURE GRAN PERCENT AUTO 1 % (0-1); LYMPHOCYTES PERCENT AUTO 19 % (21-46); MONOCYTES ABSOLUTE AUTO 0.53 K/mm3 (0.16-1.47); MONOCYTES PERCENT AUTO 6 % (4-13); Mean Corpuscular HGB 34.7 pg (26.0-34.0); Mean Corpuscular HGB Conc 32.2 g/dL (31.5-36.5); Mean Corpuscular Volume 108 fL (80-100); Mean Platelet Volume 10.3 fL (9.1-12.4); NEUTROPHILS PERCENT AUTO 74 % (41-73); Platelet Count 245 K/mm3 (150-400); RDW Coefficient Variation 13.7 % (11.7-14.2); RDW Standard Deviation 54.2 fL (35.1-46.3); Red Blood Cell Count 3.43 M/mm3 (3.80-5.20); White Blood Cell Count 8.67 K/mm3 (4.00-11.30)
[2020-04-16 17:42] LABS: Alanine Aminotransfer (ALT/SGP 86 U/L (12-78); Albumin, Blood 3.7 g/dL (3.4-5.0); Albumin/Globulin Ratio 1.4 (0.8-1.8); Alk Phos 197 U/L (50-136); Anion Gap 10 mmol/L (6-16); Aspartate Aminotrans (AST/SGOT 69 U/L (12-37); Bilirubin, Total 0.8 mg/dL (0.1-1.0); Blood Urea Nitrogen 10 mg/dL (8-24); Bun/Creatinine Ratio 14.1 (12.0-20.0); CO2, Blood 22 mmol/L (21-32); Calcium, Blood 8.5 mg/dL (8.5-10.1); Chloride, Blood 110 mmol/L (98-108); Creatinine, Blood 0.71 mg/dL (0.40-1.00); Globulin, Blood 2.6 g/dL (2.2-4.0); Glomerular Filtration Rate >60 (60-); Glucose, Blood 81 mg/dL (70-99); Potassium, Blood 3.6 mmol/L (3.5-5.5); Sodium, Blood 142 mmol/L (136-145); Total Protein, Blood 6.3 g/dL (6.4-8.2); Troponin I <0.015 ng/mL (0.000-0.040)
[2020-04-16] MEDS ORDERED: GUAI600T33 PO (21:39)
== END 2020-04-16 21:47 | disposition home or self-care (01) ==
LOC: ER 16:44
PROVIDERS: Physician Assistant
DX: J06.9 Acute upper respiratory infection, unspecified (principal); F41.9 Anxiety disorder, unspecified; R07.9 Chest pain, unspecified; K21.9 Gastro-esophageal reflux disease without esophagitis; I10 Essential (primary) hypertension; J44.9 Chronic obstructive pulmonary disease, unspecified; E03.9 Hypothyroidism, unspecified; F32.9 Major depressive disorder, single episode, unspecified; E78.5 Hyperlipidemia, unspecified; Z79.899 Other long term (current) drug therapy; Z79.84 Long term (current) use of oral hypoglycemic drugs; Z88.5 Allergy status to narcotic agent; Z88.6 Allergy status to analgesic agent; Z88.2 Allergy status to sulfonamides; Z88.1 Allergy status to other antibiotic agents; Z79.51 Long term (current) use of inhaled steroids; Z87.891 Personal history of nicotine dependence
CPT/HCPCS: 36415; 71046; 80053; 84484; 85025; 93005; 93010; 96374; 96375; 99285-25; J2060; J2930

== ENCOUNTER 2020-07-28 08:31 | Day surgery (SDC) | payer OTHER ==
[~2020-07-28] VITALS: Ht 165.1 cm; Wt 96.0 kg
[~2020-07-28 08:31] MED LIST changes: +EUTHYROX50 MCG PO; +GUAI600T33 PO; -LEVSOD50 PO; +MIRT30 PO
[2020-07-28] MEDS ORDERED: DULERA 100 MCG/13 GM INH (09:04)
--- NOTE | 2020-07-28 10:11 | NUR ---
Ambulatory in Day Surgery History, Chart, Medications and Allergies reviewed before start of procedure.Lungs clear T/O to Auscultation. Pre-Op teaching done. Pt verbalizes understanding.
--- NOTE | 2020-07-28 11:53 | NUR ---
07/28/20 1153 Caitlin Malloy BONE FRAGMENTS DISCARDED PER SURGEON
--- NOTE | 2020-07-29 03:48 | NUR ---
SHIFT SUMMARY POD1 L TKA WITH DR. RIVAS. PT AOX4. PT REPORTS PAIN 1-5 T/O SHIFT. PAIN MANAGED WITH TORADOL, TYLENOL AND 5MG OXY. PT DENIES NUMBNESS AND TINGLING SENSATION. POLAR PACK IN PLACED ON L KNEE WITH BASHIR WRAP, CDI. PT AMBULATING IN BATHROOM WITH 1 MIN ASSIST, FWW AND GB. INFUSING LR WITH ABX. TOLERATING ADA DIET DENIES N/V. CBG AT 170 LAST NIGHT MEDICATED WITH 1 UNIT HUMILIN. VSS. USE O2 AT 2L FOR COMFORT HX SLEEP APNEA, USES CPAP AT HOME BUT PREFER TO USE O2 LAST NIGHT FOR SLEEP. PT COMFORTABLE IN BED AT THIS TIME, SLEPT MOST OF THE T/O THE SHIFT. PT DENIES PASSING FLATUS. CALL LIGHT W/IN REACH. WILL PROVIDE REPORT TO UPCOMING AM NURSE.
[2020-07-29 04:36] LABS: BASOPHILS ABSOLUTE AUTO 0.03 K/mm3 (0.00-0.23); BASOPHILS PERCENT AUTO 0 % (0-2); EOSINOPHILS ABSOLUTE AUTO 0.01 K/mm3 (0.00-0.68); EOSINOPHILS PERCENT AUTO 0 % (0-6); Hematocrit 37.1 % (33.0-51.0); Hemoglobin 12.7 g/dL (11.5-16.0); IMMATURE GRAN ABSOLUTE AUTO 0.04 K/mm3 (0.00-0.10); IMMATURE GRAN PERCENT AUTO 0 % (0-1); LYMPHOCYTES ABSOLUTE AUTO 1.24 K/mm3 (0.84-5.20); LYMPHOCYTES PERCENT AUTO 11 % (21-46); MONOCYTES ABSOLUTE AUTO 0.82 K/mm3 (0.16-1.47); MONOCYTES PERCENT AUTO 7 % (4-13); Mean Corpuscular HGB 35.9 pg (26.0-34.0); Mean Corpuscular HGB Conc 34.2 g/dL (31.5-36.5); Mean Corpuscular Volume 105 fL (80-100); Mean Platelet Volume 10.4 fL (9.1-12.4); NEUTROPHILS ABSOLUTE AUTO 9.45 K/mm3 (1.96-9.15); NEUTROPHILS PERCENT AUTO 82 % (41-73); Platelet Count 207 K/mm3 (150-400); RDW Coefficient Variation 12.4 % (11.7-14.2); RDW Standard Deviation 48.5 fL (35.1-46.3); Red Blood Cell Count 3.54 M/mm3 (3.80-5.20); White Blood Cell Count 11.59 K/mm3 (4.00-11.30)
[2020-07-29 04:56] LABS: Anion Gap 6 mmol/L (6-16); Blood Urea Nitrogen 25 mg/dL (8-24); Bun/Creatinine Ratio 26.6 (12.0-20.0); CO2, Blood 27 mmol/L (21-32); Calcium, Blood 8.6 mg/dL (8.5-10.1); Chloride, Blood 104 mmol/L (98-108); Creatinine, Blood 0.94 mg/dL (0.40-1.00); Glomerular Filtration Rate >60 (60-); Glucose, Blood 138 mg/dL (70-99); Magnesium, Blood 1.9 mg/dL (1.6-2.4); Potassium, Blood 4.9 mmol/L (3.5-5.5); Sodium, Blood 137 mmol/L (136-145)
[2020-07-29] MEDS ORDERED: CLIN150 PO (10:04)
[2020-07-29] MEDS ORDERED: ENOX40I SC (10:06)
[2020-07-29] MEDS ORDERED: ROXICODONE5 MG PO (10:07)
[2020-07-29] MEDS ORDERED: PROM25 PO (10:08)
[2020-07-29] MEDS ORDERED: Aspirin EC81 MG PO (10:15)
--- NOTE | 2020-07-29 15:42 | NUR ---
1535 discharged to home pt reports pain is well controlled, esau po food and fluids without nausea, left knee dressing dry and intact. pt ambulating in room using walker and steady on feet. pt states she feels ready to be discharged to home
== END 2020-07-29 15:45 | disposition home or self-care (01) ==
LOC: ORSCMMR 08:31 → ORD 11:00 → SURS 13:57 → ORSCMMR 07-29 15:45 → SURS 07-29 15:45
PROVIDERS: Orthopaedic Surgery
PROC: 0SRD0J9 Replacement of Left Knee Joint with Synthetic Substitute, Cemented, Open Approach (ICD-10-PCS; principal; 2020-07-28 11:00)
PROC: 8E0YXBZ Computer Assisted Procedure of Lower Extremity (ICD-10-PCS; principal; 2020-07-28 11:00)
DX: M17.12 Unilateral primary osteoarthritis, left knee (principal); I10 Essential (primary) hypertension; E11.9 Type 2 diabetes mellitus without complications; G47.33 Obstructive sleep apnea (adult) (pediatric); E03.9 Hypothyroidism, unspecified; E66.9 Obesity, unspecified; Z68.35 Body mass index [BMI] 35.0-35.9, adult; Z79.899 Other long term (current) drug therapy
CPT/HCPCS: 36415; 73560-LT; 80048; 82947; 83735; 85025; 94640; 94760; 97110; 97116; 97162; A9270; C1713; C1776; J0171; J0690; J0735; J1100; J1650; J1815; J1885; J2250; J2370; J2405; J2704; J2795; J3010; J3370; J7120

== ENCOUNTER 2023-01-03 05:53 | Observation (INO) | payer OTHER ==
[2023-01-03] VITALS (30 sets, daily range): BP systolic 71–112; BP diastolic 41–76
[~2023-01-03] VITALS: Ht 160 cm; Wt 68.3 kg
[~2023-01-03 05:53] MED LIST changes: +Aspirin EC81 MG PO; +CLIN150 PO; +DULERA 100 MCG/13 GM INH; +MELATONIN2.5 MG PO; +PROM25 PO
--- NOTE | 2023-01-03 07:56 | NUR ---
Ambulatory in Day Surgery with SBA. History, Chart, Medications and Allergies reviewed before start of procedure. Patient confirms NPO status and agrees with scheduled surgery. Pre-Op teaching done. Pt verbalizes understanding. Patient reports completing Chlorhexadine shower X1 prior to admission to hospital. Patient States Post-Procedure ride home has been arranged. Surgical site prepped with 2% Chlorhexidine cloth wipe.
--- NOTE | 2023-01-03 08:49 | NUR ---
01/03/23 0849 Santa Otto INTERSCALENE BLOCK COMPLETED BY DR. FRAGA IN THE OR BEFORE INTUBATION. PT TOLERATED WELL.
--- NOTE | 2023-01-03 11:56 | NUR ---
PT IS HYPOTENSTIVE, TACHY, SLEEPY. RESPONDS TO VERBAL COMMANDS. NOTIFIED DR. FRAGA AND DR. RIVAS. ORDER TO GIVE 500ML BOLUS.
--- NOTE | 2023-01-03 12:18 | NUR ---
5OOML LACTATED RINGER BOLUS GIVEN. PT REMAINS HYPOTENSIVE AND TACHY. VERY SLEEPY. SHAKIRA IS CONCERNED ABOUT TAKING HER HOME AT THIS POINT, STATING AMBULATING FROM THE DRIVE WAY TO THE DOOR IS A LONG UP H[place] TRAVEL. NOTIFIED CHARGE NURSE TO REQUEST EXTENDED RECOVERY FROM . NURSING WOOD MOLDER NOTIFIED.
[2023-01-03 13:22] LABS: Hematocrit 33.3 % (33.0-51.0); Hemoglobin 11.9 g/dL (11.5-16.0); Mean Corpuscular HGB 38.5 pg (26.0-34.0); Mean Corpuscular HGB Conc 35.7 g/dL (31.5-36.5); Mean Corpuscular Volume 108 fL (80-100); Mean Platelet Volume 10.9 fL (9.1-12.4); Platelet Count 157 K/mm3 (150-400); RDW Coefficient Variation 13.1 % (11.7-14.2); RDW Standard Deviation 51.9 fL (35.1-46.3); Red Blood Cell Count 3.09 M/mm3 (3.80-5.20); White Blood Cell Count 8.84 K/mm3 (4.00-11.30)
[2023-01-03 13:36] LABS: Calcium, Blood 8.4 mg/dL (8.5-10.1); Potassium, Blood 4.8 mmol/L (3.5-5.5)
[2023-01-03 14:00] LABS: BAND PERCENT MAN 7 % (0-8); BASOPHILS PERCENT MAN 0 % (0-2); EOSINOPHILS PERCENT MAN 0 % (0-6); LYMPHOCYTES ABSOLUTE MAN 0.44 K/mm3 (0.84-5.20); LYMPHOCYTES PERCENT MAN 5 % (21-46); MONOCYTES ABSOLUTE MAN 0.08 K/mm3 (0.16-1.47); MONOCYTES PERCENT MAN 1 % (4-13); SEG NEUTROPHILS PERCENT MAN 87 % (41-73); TOTAL CELLS COUNTED 100
--- NOTE | 2023-01-03 16:24 | NUR ---
SHIFT SUMMARY PT A&OX4, VSS/RA(SATS 94%), UP TO CHAIR/AMB 1 PP MIN ASSIST TO BRP W/GB, CARLO PO, REP PAIN 0/10, VOIDING. S/P R TSA, BULKY DRESSING, SLING ON, ELEVATED, NWB. WILL REPORT TO ONCOMING NOC RN.
[2023-01-04 02:44] VITALS: BP 111/66
[2023-01-04 04:24] LABS: Hematocrit 31.9 % (33.0-51.0); Hemoglobin 11.3 g/dL (11.5-16.0); Mean Corpuscular HGB 38.6 pg (26.0-34.0); Mean Corpuscular HGB Conc 35.4 g/dL (31.5-36.5); Mean Corpuscular Volume 109 fL (80-100); Platelet Count 167 K/mm3 (150-400); RDW Coefficient Variation 13.1 % (11.7-14.2); RDW Standard Deviation 52.7 fL (35.1-46.3); Red Blood Cell Count 2.93 M/mm3 (3.80-5.20); White Blood Cell Count 9.67 K/mm3 (4.00-11.30)
--- NOTE | 2023-01-04 04:30 | NUR ---
SHIFT SUMMARY POD 1 R TSA PT A&O X4, BULKY DRESSING IN PLACE ON R SHOULDER C/D/I. UP TO THE BATHROOM MULTIPLE TIMES T/O NIGHT, 1 PERSON ASST WITH AIT BELT. REPORTS LITTLE PAIN, MEDICATED PER EMAR. VSS. NO OTHER CONCERNS. PLAN TO DISCHARGE TODAY. CALL LIGHT WITHIN REACH.
[2023-01-04 04:43] LABS: Bun/Creatinine Ratio 11.7 (12.0-20.0); Calcium, Blood 8.2 mg/dL (8.5-10.1); Creatinine, Blood 1.11 mg/dL (0.40-1.00); Potassium, Blood 4.5 mmol/L (3.5-5.5)
[2023-01-04 07:42] VITALS: BP 102/64
--- NOTE | 2023-01-04 11:58 | NUR ---
DISCHARGE NOTE: PATIENT AND PATIENTS DAUGHTER WERE EDUCATED ON DISCHARGE INSTRUCTIONS. BOTH VERBALIZED UNDERSTANDING OF INSTRUCTIONS AND HAD NO FURTHER QUESTIONS AT THIS TIME. HER RIGHT SHOULDER HAS AN AQUACEL DRESSING THAT IS C/D/I AND IS IN HER IMMOBILIZER. SHE DENIES NUMBNESS AND TINGLING IN ALL EXTREMITIES AND IS ABLE TO MOVE ALL FINGERS AND TOES. HER PAIN IS MANAGED WITH PO PAIN MEDS. SHE IS DRESSED AND HAS PERSONAL ITEMS IN THE ROOM GATHERED. SHE IS BEING WHEELCHAIRED OUT TO HER DAUGHTERS CAR TO BE TAKEN HOME.
== END 2023-01-04 12:00 | disposition home or self-care (01) ==
LOC: ORSCMMR 05:53 → ORSCSDS 07:30 → SURS 09:46 → ORSCMMR 09:47 → SURS 13:37
PROVIDERS: Anesthesiology; Orthopaedic Surgery; ADMIT Internal Medicine
PROC: 0RPJ0JZ Removal of Synthetic Substitute from Right Shoulder Joint, Open Approach (ICD-10-PCS; principal; 2023-01-03 07:30)
PROC: 0RRJ0JZ Replacement of Right Shoulder Joint with Synthetic Substitute, Open Approach (ICD-10-PCS; principal; 2023-01-03 07:30)
DX: M19.011 Primary osteoarthritis, right shoulder (principal); I95.81 Postprocedural hypotension; G47.33 Obstructive sleep apnea (adult) (pediatric); J44.9 Chronic obstructive pulmonary disease, unspecified; E03.9 Hypothyroidism, unspecified; E11.9 Type 2 diabetes mellitus without complications; E78.5 Hyperlipidemia, unspecified; K21.9 Gastro-esophageal reflux disease without esophagitis; F10.90 Alcohol use, unspecified, uncomplicated; Z79.84 Long term (current) use of oral hypoglycemic drugs
CPT/HCPCS: 36415; 73030; 80048; 82947; 84443; 84484; 85025; 85027; 94760; A9270; C1713; C1776; J0696; J1100; J1650; J1885; J2371; J2405; J2704; J3010; J3370; J7030; J7120

== ENCOUNTER 2023-05-15 07:21 | Inpatient (IN) | payer OTHER ==
[~2023-05-15] VITALS: Ht 162.6 cm; Wt 73.0 kg
[2023-05-15] MEDS ORDERED: PROGESTERONE5000 GM (07:53)
[2023-05-15] MEDS ORDERED: ATORVASTATIN CA20 MG PO (07:53)
[2023-05-15] MEDS ORDERED: DULOXETINE HCL60 M1 PO (07:53)
[2023-05-15] MEDS ORDERED: FLUTICASONE-SA1 EAC9 INH (07:54)
[2023-05-15] MEDS ORDERED: MONT10T PO (07:54)
[2023-05-15] MEDS ORDERED: Ventolin/Prove6.7 GM INH (07:54)
[2023-05-15] MEDS ORDERED: OMEP20ER PO (07:54)
[2023-05-15] MEDS ORDERED: METFORMIN HCL500 M2 PO (07:54)
[2023-05-15] MEDS ORDERED: OLANZAPINE5 M1 PO (07:54)
[2023-05-15] MEDS ORDERED: LISI20 PO (07:55)
[2023-05-15 08:41] LABS: Influenza A, PCR NEGATIVE (NEGATIVE); Influenza B, PCR NEGATIVE (NEGATIVE); SARS-Cov-2 (COVID-19) PCR, MMC NEGATIVE (NEGATIVE)
[2023-05-15 08:42] LABS: Resp Syncytial Virus, PCR POSITIVE (NEGATIVE)
[2023-05-15 09:36] LABS: BASOPHILS ABSOLUTE AUTO 0.04 K/mm3 (0.00-0.23); BASOPHILS PERCENT AUTO 1 % (0-2); EOSINOPHILS ABSOLUTE AUTO 0.01 K/mm3 (0.00-0.68); EOSINOPHILS PERCENT AUTO 0 % (0-6); Hematocrit 34.5 % (33.0-51.0); Hemoglobin 12.1 g/dL (11.5-16.0); IMMATURE GRAN ABSOLUTE AUTO 0.03 K/mm3 (0.00-0.10); IMMATURE GRAN PERCENT AUTO 1 % (0-1); LYMPHOCYTES ABSOLUTE AUTO 0.87 K/mm3 (0.84-5.20); LYMPHOCYTES PERCENT AUTO 15 % (21-46); MONOCYTES ABSOLUTE AUTO 0.62 K/mm3 (0.16-1.47); MONOCYTES PERCENT AUTO 11 % (4-13); Mean Corpuscular HGB 37.2 pg (26.0-34.0); Mean Corpuscular HGB Conc 35.1 g/dL (31.5-36.5); Mean Corpuscular Volume 106 fL (80-100); Mean Platelet Volume 10.2 fL (9.1-12.4); NEUTROPHILS ABSOLUTE AUTO 4.19 K/mm3 (1.96-9.15); NEUTROPHILS PERCENT AUTO 73 % (41-73); Platelet Count 164 K/mm3 (150-400); RDW Standard Deviation 58.6 fL (35.1-46.3); Red Blood Cell Count 3.25 M/mm3 (3.80-5.20); White Blood Cell Count 5.76 K/mm3 (4.00-11.30)
[2023-05-15 10:07] LABS: Albumin, Blood 3.5 g/dL (3.4-5.0); Albumin/Globulin Ratio 0.9 (0.8-1.8); Bilirubin, Total 0.8 mg/dL (0.1-1.0); Bun/Creatinine Ratio 23.2 (12.0-20.0); Calcium, Blood 8.8 mg/dL (8.5-10.1); Creatinine, Blood 0.43 mg/dL (0.40-1.00); Potassium, Blood 4.1 mmol/L (3.5-5.5); Total Protein, Blood 7.5 g/dL (6.4-8.2)
[2023-05-15] MEDS ORDERED: LEVOTHYROXINE50 MC9 PO (14:42)
[2023-05-15] MEDS ORDERED: PROG100 PO (14:42)
[2023-05-15 15:57] VITALS: BP 134/69
--- NOTE | 2023-05-15 19:01 | NUR ---
SHIFT SUMMARY/ADMISSION NOTE: PT IS A 62 YEAR OLD FEMALE HERE FOR ACUTE RESPIRATORY DISTRESS RELATED TO RSV. SHE IS REQUIRING 3 L OF N/C O2 TO MAINTAIN OXYGEN SATURATION LEVELS GREATER THAN 92%. SHE ALSO HAS A HISTORY OF ETOH 4-5 BOTTLE OF WINE DAILY. EXPLAINED TO PATIENT THE POTENTIAL OF ALCOHOL WITHDRAWAL WHILE SHE IS IN THE HOSPITAL AND WHO WE MANAGE WITHDRAWAL AND PATIENT UNDERSTOOD. SHE STATES THAT SHE DOESN'T EAT MUCH DUE TO DRINKING WINE. HER MOST RECENT CIWA WAS A 6. SHE IS IN BED, CALL LIGHT WITHIN REACH, NO SIGNS OR SYMPTOMS OF DISTRESS. PLAN OF CARE ONGOING.
[2023-05-15 20:05] VITALS: BP 140/81
[2023-05-16 03:22] VITALS: BP 133/78
--- NOTE | 2023-05-16 04:17 | NUR ---
Shift Summary Pt had increased CIWA score tonight up to 9 with sweating, severe headache, and mild anxiety. Earlier in the shift I gave tramadol for headache but it only got worse. Later I gave 2 mg IV Ativan for ETOH withdrawal and she slept well for hours. Upon waking she impulsivley got out of bed and took her NC off, her O2 sat quickly dropped to 83%. Pt stated her headache was gone, and she was able to be reoriented to her situation easily. She is 1 assist to the BSC and cooperative with care.
[2023-05-16 06:32] LABS: BASOPHILS ABSOLUTE AUTO 0.03 K/mm3 (0.00-0.23); BASOPHILS PERCENT AUTO 1 % (0-2); EOSINOPHILS ABSOLUTE AUTO 0.01 K/mm3 (0.00-0.68); EOSINOPHILS PERCENT AUTO 0 % (0-6); Hematocrit 31.6 % (33.0-51.0); IMMATURE GRAN ABSOLUTE AUTO 0.01 K/mm3 (0.00-0.10); IMMATURE GRAN PERCENT AUTO 0 % (0-1); LYMPHOCYTES ABSOLUTE AUTO 1.21 K/mm3 (0.84-5.20); LYMPHOCYTES PERCENT AUTO 24 % (21-46); MONOCYTES ABSOLUTE AUTO 0.53 K/mm3 (0.16-1.47); MONOCYTES PERCENT AUTO 10 % (4-13); Mean Corpuscular HGB 37.7 pg (26.0-34.0); Mean Corpuscular HGB Conc 34.8 g/dL (31.5-36.5); Mean Corpuscular Volume 108 fL (80-100); Mean Platelet Volume 10.2 fL (9.1-12.4); NEUTROPHILS ABSOLUTE AUTO 3.29 K/mm3 (1.96-9.15); NEUTROPHILS PERCENT AUTO 65 % (41-73); Platelet Count 127 K/mm3 (150-400); RDW Coefficient Variation 15.3 % (11.7-14.2); RDW Standard Deviation 60.4 fL (35.1-46.3); Red Blood Cell Count 2.92 M/mm3 (3.80-5.20); White Blood Cell Count 5.08 K/mm3 (4.00-11.30)
[2023-05-16 06:56] LABS: Albumin, Blood 3.1 g/dL (3.4-5.0); Albumin/Globulin Ratio 0.9 (0.8-1.8); Bun/Creatinine Ratio 21.8 (12.0-20.0); Calcium, Blood 8.9 mg/dL (8.5-10.1); Creatinine, Blood 0.6 mg/dL (0.40-1.00); Globulin, Blood 3.3 g/dL (2.2-4.0); Potassium, Blood 3.6 mmol/L (3.5-5.5); Total Protein, Blood 6.4 g/dL (6.4-8.2)
[2023-05-16 07:31] VITALS: BP 128/78
--- NOTE | 2023-05-16 18:44 | NUR ---
PT IS DROWSY AND ORIENTED X4. LAST CIWA 8, TREATED PER EMAR. PT SLEPT MOST OF THE SHIFT. CALM AND COOPERATIVE. SBA ASSIST TO BATHROOM DUE TO MEDICATIONS BUT CAN AMBULATE INDEPENDENTLY, CALLS APPROPRIATELY. 4L NC, WILL DESAT TO HIGH 70S ON R/A AND WHEN SLEEPING. EDUCATED IMPORTANCE OF CALLING BEFORE NAP SO THAT WE CAN PLACE CPAP ON. PT AGREES BUT FALLS ASLEEP WITHOUT REALIZING. BIOX CONTINUES. REQUIRES FREQUENT REMINDERS TO TAKE DEEP BREATHS THROUGH NOSE. HACKING COUGH. TREATED PER EMAR. BED IS IN THE LOWEST POSITION WITH CALL LIGHT IN REACH
[2023-05-17 04:25] VITALS: BP 131/81
--- NOTE | 2023-05-17 05:08 | NUR ---
SHIFT SUMMARY: RESTING IN BED THIS SHIFT, NON PRODUCTIVE DRY COUGH OBSERVED, COUGH TREATED PER EMAR, A&O X4, C/O HEADACHE TREATED WITH TRAMADOL, UP TO BATHROOM WITH ASSISTANCE FROM STAFF, NO SIGNS OF WITHDRAWAL OBSERVED THIS SHIFT, 4L NC.
[2023-05-17 05:32] LABS: BASOPHILS ABSOLUTE AUTO 0.03 K/mm3 (0.00-0.23); BASOPHILS PERCENT AUTO 1 % (0-2); EOSINOPHILS ABSOLUTE AUTO 0.03 K/mm3 (0.00-0.68); EOSINOPHILS PERCENT AUTO 1 % (0-6); Hematocrit 31.8 % (33.0-51.0); Hemoglobin 11.3 g/dL (11.5-16.0); IMMATURE GRAN ABSOLUTE AUTO 0.01 K/mm3 (0.00-0.10); IMMATURE GRAN PERCENT AUTO 0 % (0-1); LYMPHOCYTES PERCENT AUTO 33 % (21-46); MONOCYTES ABSOLUTE AUTO 0.37 K/mm3 (0.16-1.47); MONOCYTES PERCENT AUTO 7 % (4-13); Mean Corpuscular HGB 38.2 pg (26.0-34.0); Mean Corpuscular HGB Conc 35.5 g/dL (31.5-36.5); Mean Corpuscular Volume 107 fL (80-100); Mean Platelet Volume 10.4 fL (9.1-12.4); NEUTROPHILS ABSOLUTE AUTO 3.04 K/mm3 (1.96-9.15); NEUTROPHILS PERCENT AUTO 59 % (41-73); Platelet Count 118 K/mm3 (150-400); RDW Coefficient Variation 14.8 % (11.7-14.2); RDW Standard Deviation 58.7 fL (35.1-46.3); Red Blood Cell Count 2.96 M/mm3 (3.80-5.20); White Blood Cell Count 5.18 K/mm3 (4.00-11.30)
[2023-05-17 06:50] LABS: Percent Saturation 11.3 % (15.0-50.0)
[2023-05-17 06:56] LABS: Albumin, Blood 2.9 g/dL (3.4-5.0); Albumin/Globulin Ratio 0.9 (0.8-1.8); Bun/Creatinine Ratio 26.4 (12.0-20.0); Calcium, Blood 8.9 mg/dL (8.5-10.1); Creatinine, Blood 0.57 mg/dL (0.40-1.00); Globulin, Blood 3.3 g/dL (2.2-4.0); Potassium, Blood 3.5 mmol/L (3.5-5.5); Total Protein, Blood 6.2 g/dL (6.4-8.2)
[2023-05-17 07:27] VITALS: BP 126/89
--- NOTE | 2023-05-17 17:22 | NUR ---
PT IS ALERT AND ORIENTED X4. VERY TIRED, UNABLE TO SLEEP BECAUSE OF COUGH. TREATED PER EMAR. REQUIRED 2 PRN BREATHING TREATMENTS THIS SHIFT. COUGH IS HARSH AND DRY. 3L NC TO MAINTAIN SATS >90. INDEPENDENT TO THE BATHROOM. CALLS APPROPRIATELY. PT PO INTAKE INCREASED THROUGHOUT THE DAY. SHE REPORTED FEELING SLIGHTLY BETTER THAN YESTERDAY BUT HER COUGH IS BOTHERING HER. CPAP AT BEDSIDE.
[2023-05-17 19:44] VITALS: BP 128/72
[2023-05-18 02:34] VITALS: BP 134/67
--- NOTE | 2023-05-18 04:48 | NUR ---
SHIFT SUMMARY: CONTINUES TO HAVE DRY NON PRODUCTIVE COUGH, MEDS GIVEN PER EMAR, C/O PAIN AND MEDICATED PER EMAR, UP TO BATHROOM INDEPENDANTLY, 4L NC THIS SHIFT, ENCOURAGED TO REPOSITION AND OFF LOAD BUTTOCKS TO RELIEVE RED AREA THIS SHIFT.
[2023-05-18 06:36] LABS: BASOPHILS ABSOLUTE AUTO 0.03 K/mm3 (0.00-0.23); BASOPHILS PERCENT AUTO 1 % (0-2); EOSINOPHILS ABSOLUTE AUTO 0.04 K/mm3 (0.00-0.68); EOSINOPHILS PERCENT AUTO 1 % (0-6); Hematocrit 31.9 % (33.0-51.0); Hemoglobin 11.1 g/dL (11.5-16.0); IMMATURE GRAN ABSOLUTE AUTO 0.01 K/mm3 (0.00-0.10); IMMATURE GRAN PERCENT AUTO 0 % (0-1); LYMPHOCYTES ABSOLUTE AUTO 2.35 K/mm3 (0.84-5.20); LYMPHOCYTES PERCENT AUTO 42 % (21-46); MONOCYTES ABSOLUTE AUTO 0.56 K/mm3 (0.16-1.47); MONOCYTES PERCENT AUTO 10 % (4-13); Mean Corpuscular HGB 37.2 pg (26.0-34.0); Mean Corpuscular HGB Conc 34.8 g/dL (31.5-36.5); Mean Corpuscular Volume 107 fL (80-100); Mean Platelet Volume 10.8 fL (9.1-12.4); NEUTROPHILS ABSOLUTE AUTO 2.58 K/mm3 (1.96-9.15); NEUTROPHILS PERCENT AUTO 46 % (41-73); Platelet Count 140 K/mm3 (150-400); RDW Coefficient Variation 14.4 % (11.7-14.2); RDW Standard Deviation 56.8 fL (35.1-46.3); Red Blood Cell Count 2.98 M/mm3 (3.80-5.20); White Blood Cell Count 5.57 K/mm3 (4.00-11.30)
[2023-05-18 07:21] LABS: Albumin, Blood 2.8 g/dL (3.4-5.0); Albumin/Globulin Ratio 0.8 (0.8-1.8); Bilirubin, Total 0.9 mg/dL (0.1-1.0); Bun/Creatinine Ratio 25.5 (12.0-20.0); Calcium, Blood 8.9 mg/dL (8.5-10.1); Creatinine, Blood 0.59 mg/dL (0.40-1.00); Globulin, Blood 3.5 g/dL (2.2-4.0); Potassium, Blood 3.1 mmol/L (3.5-5.5); Total Protein, Blood 6.3 g/dL (6.4-8.2)
[2023-05-18 10:45] LABS: Stool Occult Blood Guaiac 1 Pos (Neg)
[2023-05-18 16:08] VITALS: BP 110/66
--- NOTE | 2023-05-18 17:52 | NUR ---
PT ALERT AND ORIENTED X4. INDEPENDENT, WILL CALL APPROPRIATELY. SEVERE HARSH HACKING COUGH, WORSE TODAY THAN YESTERDAY. DR. CATHERINE NOTIFIED, PLS SEE UPDATED EMAR. HEADACHE ALSO CONSTANT SECONDARY TO COUGH. 2X PRN BREATHING TREATMENTS TODAY. PT WHEEZING AND CHEST IS TIGHT. 3L NC STILL NEEDED TO MAINTAIN O2 SAT >90%.
--- NOTE | 2023-05-18 19:12 | NUR ---
SPOKE WITH PHARMACIST, SADIE, FOR CLARIFICATION ON GUAIFENESIN MEDICATIONS. PER PHARMACIST, IT IS OK TO GIVE ALL MEDICATIONS ORDERED
[2023-05-18 19:59] VITALS: BP 127/73
[2023-05-19 03:44] VITALS: BP 132/81
--- NOTE | 2023-05-19 04:29 | NUR ---
SHIFT SUMMARY PATIENT COUGHING ON/OFF. ROBITUSSIN D GIVEN WITH GOOD EFFECT. ABLE TO SLEEP WITH REDUCED COUGH. REPORTED HEAD BACK PAIN X TWO AND ULTRAM AND NORCO GIVEN PER EMAR ALTERNATING. AXOX 3 AND INDEPENDENT IN ROOM. ON 3L O2 NC. VSS/AFEBRILE. DENIES CHEST PAIN AND NV. NEW PIV PLACED. CALL LIGHT IN REACH. BED IN LOWEST POSITION. WILL CONTINUE TO MONITOR UNTIL DAY SHIFT NURSE ASSUMES CARE.
[2023-05-19 06:40] LABS: Hematocrit 33.2 % (33.0-51.0); Hemoglobin 11.5 g/dL (11.5-16.0); Mean Corpuscular HGB 37.7 pg (26.0-34.0); Mean Corpuscular HGB Conc 34.6 g/dL (31.5-36.5); Mean Corpuscular Volume 109 fL (80-100); Mean Platelet Volume 10.9 fL (9.1-12.4); Platelet Count 146 K/mm3 (150-400); RDW Coefficient Variation 14.6 % (11.7-14.2); RDW Standard Deviation 58.8 fL (35.1-46.3); Red Blood Cell Count 3.05 M/mm3 (3.80-5.20); White Blood Cell Count 5.86 K/mm3 (4.00-11.30)
[2023-05-19 07:14] LABS: Albumin/Globulin Ratio 0.9 (0.8-1.8); Bilirubin, Total 0.7 mg/dL (0.1-1.0); Bun/Creatinine Ratio 28.4 (12.0-20.0); Creatinine, Blood 0.67 mg/dL (0.40-1.00); Globulin, Blood 3.4 g/dL (2.2-4.0); Potassium, Blood 3.6 mmol/L (3.5-5.5); Total Protein, Blood 6.4 g/dL (6.4-8.2)
[2023-05-19 07:22] LABS: BAND PERCENT MAN 1 % (0-8); BASOPHILS PERCENT MAN 0 % (0-2); EOSINOPHILS PERCENT MAN 0 % (0-6); LYMPHOCYTES % ATYPICAL MANUAL 1 % (0-0); LYMPHOCYTES ABSOLUTE MAN 2.81 K/mm3 (0.84-5.20); LYMPHOCYTES PERCENT MAN 47 % (21-46); MONOCYTES ABSOLUTE MAN 0.52 K/mm3 (0.16-1.47); MONOCYTES PERCENT MAN 9 % (4-13); NEUTROPHILS ABSOLUTE MAN 2.51 K/mm3 (1.96-9.15); SEG NEUTROPHILS PERCENT MAN 42 % (41-73); TOTAL CELLS COUNTED 100
[2023-05-19 07:32] VITALS: BP 126/83
[2023-05-19] MEDS ORDERED: ALBU2.5V5 INH (11:06)
[2023-05-19] MEDS ORDERED: BENZ100A PO (11:07)
[2023-05-19] MEDS ORDERED: Q-Tussin100 MG/5 M PO (11:07)
[2023-05-19] MEDS ORDERED: GUAI600T33 PO (11:07)
[2023-05-19] MEDS ORDERED: TRAM50 PO (11:08)
[2023-05-19] MEDS ORDERED: PRED20 PO (11:08)
--- NOTE | 2023-05-19 14:21 | NUR ---
discharge reviewed with pt she verbalized understanding. meds and instruct. iv pulled intact. no tele. pt wheeled to door by aide.
== END 2023-05-19 14:18 | disposition home or self-care (01) | DRG 189 ==
LOC: ER 07:21 → MEDS 13:05
PROVIDERS: Emergency Medicine; Physician Assistant; ADMIT Family Medicine
DX: J96.01 Acute respiratory failure with hypoxia (principal); J06.9 Acute upper respiratory infection, unspecified; B97.4 Respiratory syncytial virus as the cause of diseases classified elsewhere; F10.10 Alcohol abuse, uncomplicated; R19.5 Other fecal abnormalities; I10 Essential (primary) hypertension; F41.9 Anxiety disorder, unspecified; M79.7 Fibromyalgia; F32.A Depression, unspecified; E78.5 Hyperlipidemia, unspecified; D69.6 Thrombocytopenia, unspecified; G47.30 Sleep apnea, unspecified; R74.01 Elevation of levels of liver transaminase levels; D64.9 Anemia, unspecified; K21.9 Gastro-esophageal reflux disease without esophagitis; J44.9 Chronic obstructive pulmonary disease, unspecified; M19.90 Unspecified osteoarthritis, unspecified site; Z79.84 Long term (current) use of oral hypoglycemic drugs; Z87.891 Personal history of nicotine dependence; Z79.51 Long term (current) use of inhaled steroids; Z11.52 Encounter for screening for COVID-19
CPT/HCPCS: 0241U; 36415; 71046; 76705; 80053; 82270; 82607; 82728; 82746; 82947; 83540; 83550; 83690; 85025; 94640; 94660; 94664; 94761; 94762; 96361; 96374; 99285-25; A9270; C9113; J1815; J2060; J2405; J7030; J7512

== ENCOUNTER 2023-08-12 06:31 | Emergency (ER) | payer OTHER ==
[~2023-08-12] VITALS: Ht 162.6 cm; Wt 70.3 kg
[~2023-08-12 06:31] MED LIST changes: +ALBU2.5V5 INH; +AMOCLA875 PO; +ATORVASTATIN CA20 MG PO; +AZIT250 PO; +DULOXETINE HCL60 M1 PO; +FLUTICASONE-SA1 EAC9 INH; +LEVOTHYROXINE50 MC9 PO; +METFORMIN HCL500 M2 PO; +OLANZAPINE5 M1 PO; +PRED20 PO; +PROG100 PO; +PROGESTERONE5000 GM; +Q-Tussin100 MG/5 M PO; +TRAM50 PO; +Ventolin/Prove6.7 GM INH
[2023-08-12 07:41] LABS: BASOPHILS ABSOLUTE AUTO 0.04 K/mm3 (0.00-0.23); BASOPHILS PERCENT AUTO 1 % (0-2); EOSINOPHILS ABSOLUTE AUTO 0.09 K/mm3 (0.00-0.68); EOSINOPHILS PERCENT AUTO 2 % (0-6); Hematocrit 35.8 % (33.0-51.0); Hemoglobin 12.3 g/dL (11.5-16.0); IMMATURE GRAN ABSOLUTE AUTO 0.02 K/mm3 (0.00-0.10); IMMATURE GRAN PERCENT AUTO 0 % (0-1); LYMPHOCYTES ABSOLUTE AUTO 1.94 K/mm3 (0.84-5.20); LYMPHOCYTES PERCENT AUTO 32 % (21-46); MONOCYTES ABSOLUTE AUTO 0.36 K/mm3 (0.16-1.47); MONOCYTES PERCENT AUTO 6 % (4-13); Mean Corpuscular HGB 36.3 pg (26.0-34.0); Mean Corpuscular HGB Conc 34.4 g/dL (31.5-36.5); Mean Corpuscular Volume 106 fL (80-100); Mean Platelet Volume 9.7 fL (9.1-12.4); NEUTROPHILS ABSOLUTE AUTO 3.59 K/mm3 (1.96-9.15); NEUTROPHILS PERCENT AUTO 59 % (41-73); Platelet Count 168 K/mm3 (150-400); RDW Coefficient Variation 14.8 % (11.7-14.2); RDW Standard Deviation 57.5 fL (35.1-46.3); Red Blood Cell Count 3.39 M/mm3 (3.80-5.20); White Blood Cell Count 6.04 K/mm3 (4.00-11.30)
[2023-08-12 08:03] LABS: Albumin, Blood 3.9 g/dL (3.4-5.0); Albumin/Globulin Ratio 1.2 (0.8-1.8); Bilirubin, Total 0.7 mg/dL (0.1-1.0); Bun/Creatinine Ratio 18.5 (12.0-20.0); Calcium, Blood 9.2 mg/dL (8.5-10.1); Creatinine, Blood 0.65 mg/dL (0.40-1.00); Globulin, Blood 3.3 g/dL (2.2-4.0); Potassium, Blood 3.7 mmol/L (3.5-5.5); Total Protein, Blood 7.2 g/dL (6.4-8.2)
[2023-08-12] MEDS ORDERED: DIPH50 PO (08:08)
[2023-08-12] MEDS ORDERED: DULERA 100 MCG/13 GM (08:09)
[2023-08-12] MEDS ORDERED: PROAIR DIGIHAL90 MCG (08:09)
[2023-08-12] MEDS ORDERED: MELATONIN5 M1 PO (08:09)
[2023-08-12] MEDS ORDERED: NS 1,000 ML IV SCH (08:45)
[2023-08-12] MEDS ORDERED: Ipratropium/Albuterol SulF 2.5-0.5MG/3 ML Amp INH ONE (08:45)
[2023-08-12] MEDS ORDERED: MethylPREDNISolone Sod Succ 125 MG Vial IV ONE (08:45)
[2023-08-12 09:06] LABS: Influenza A, PCR NEGATIVE (NEGATIVE); Influenza B, PCR NEGATIVE (NEGATIVE); Resp Syncytial Virus, PCR NEGATIVE (NEGATIVE); SARS-Cov-2 (COVID-19) PCR, MMC NEGATIVE (NEGATIVE)
[2023-08-12] MEDS ORDERED: DiphenhydrAMINE HCl 50 MG/ML 1ML Vial IV ONE (09:35)
[2023-08-12] MEDS ORDERED: DiphenhydrAMINE HCl 50 MG/ML 1ML Vial ONE (09:36)
[2023-08-12] MEDS ORDERED: Famotidine 10 MG/ML 2ML Vial IV ONE (09:40)
[2023-08-12] MEDS ORDERED: EPINEPHrine HCL 11.25 MG/0.5 ML VIAL ONE (09:41)
[2023-08-12] MEDS ORDERED: EpiNEPhrine 1 MG/1 ML 1ML Vial ONE (09:44)
[2023-08-12] MEDS ORDERED: EPINEPhrine HCl 1 MG/ML 1ML Amp IM ONE (09:45)
[2023-08-12] MEDS ORDERED: Albuterol 2.5 MG/3 ML VIAL INH ONE (10:00)
[2023-08-12] MEDS ORDERED: EPINEPHrine HCL 11.25 MG/0.5 ML VIAL INH ONE (10:00)
[2023-08-12 13:00] VITALS: BP 129/79
[2023-08-12] MEDS ORDERED: EZ TWIST TUBIN1 EACH INH (13:23)
[2023-08-12] MEDS ORDERED: PRED20 PO (13:23)
[2023-08-12] MEDS ORDERED: IPRAT-ALBUT 0.5-3 ML INH (13:23)
[2023-08-12] MEDS ORDERED: FAMO20 PO (13:23)
[2023-08-12] MEDS ORDERED: EPIPEN0.3 MG/0.1 IM (13:23)
[2023-08-12] MEDS ORDERED: COMPRESSOR NEB1 EACH INH (13:23)
[2023-08-13] MEDS ORDERED: Hydroxyzine HCl50 MG PO (00:33)
== END 2023-08-12 13:57 | disposition home or self-care (01) ==
LOC: ER 06:31
PROVIDERS: Student in an Organized Health Care Education/Training Program
DX: J44.1 Chronic obstructive pulmonary disease with (acute) exacerbation (principal); J44.89 Other specified chronic obstructive pulmonary disease; Z87.891 Personal history of nicotine dependence; K21.9 Gastro-esophageal reflux disease without esophagitis; I10 Essential (primary) hypertension; G47.30 Sleep apnea, unspecified; M19.90 Unspecified osteoarthritis, unspecified site; E78.5 Hyperlipidemia, unspecified; M79.7 Fibromyalgia; Z79.84 Long term (current) use of oral hypoglycemic drugs; Z79.899 Other long term (current) drug therapy; Z88.1 Allergy status to other antibiotic agents; Z88.2 Allergy status to sulfonamides; Z88.8 Allergy status to other drugs, medicaments and biological substances; F41.9 Anxiety disorder, unspecified; F10.10 Alcohol abuse, uncomplicated; E11.9 Type 2 diabetes mellitus without complications; G89.29 Other chronic pain; Z79.52 Long term (current) use of systemic steroids
CPT/HCPCS: 0241U; 71046; 80053; 82803; 83880; 84484; 85025; 93005; 93010; 94640; 94664; 96372-59; 96374; 96375; 99285-25; J0171; J1200; J2930; J7030

== ENCOUNTER 2024-06-09 08:06 | Day surgery (SDC) | payer OTHER ==
[~2024-06-09] VITALS: Ht 165.1 cm; Wt 83.0 kg
[~2024-06-09 08:06] MED LIST changes: +COMPRESSOR NEB1 EACH INH; +DULERA 100 MCG/13 GM; +EPIPEN0.3 MG/0.1 IM; +EZ TWIST TUBIN1 EACH INH; +FAMO20 PO; +Hydroxyzine HCl50 MG PO; +IPRAT-ALBUT 0.5-3 ML INH; +MELATONIN5 M1 PO; +PROAIR DIGIHAL90 MCG
[2024-06-09] MEDS ORDERED: CeFAZolin Sodium 2,000 MG VIAL ONE (08:37)
[2024-06-09] MEDS ORDERED: Lactated Ringer's 1,000 ML IV ONE (08:45)
[2024-06-09] MEDS ORDERED: DULO60 PO (08:51)
[2024-06-09] MEDS ORDERED: Midazolam HCl 1MG / ML 2ML Vial ONE (09:30)
[2024-06-09] MEDS ORDERED: Phenylephrine HCl 100 MCG/ML-NS 10MLSYR (1MG/10ML) ONE (09:30)
[2024-06-09] MEDS ORDERED: propofoL 20 ML IV ONE (09:30)
--- NOTE | 2024-06-09 10:26 | NUR ---
06/09/[address] AT BEDSIDE FOR NERVE BLOCK PROCEDURE. PT GIVEN VERSED, PLACED ON MONITORS AND 2L OR BY NC. T/O AT 1009 START TIME 1014, STOP TIME 1019. PT CARLO WELL.
--- NOTE | 2024-06-09 11:41 | NUR ---
06/09/[address] EDMONDS FOR CONSULT WITH CASE.
--- NOTE | 2024-06-09 12:38 | NUR ---
06/09/24 1238 Kierra Fernández UPON ARRIVAL TO PACU, PT'S O2 SAT IS 85% ON RA. PLACED 4L/NC ON PT & O2 SAT INCREASED TO 93%. UPON DEEP BREATHING & COUGHING, PT'S O2 SAT INCREASED TO 96%. O2 DECREASED TO 2L/NC, O2 SAT REMAINS 94%. PT DENIES PAIN/NAUSEA.
[2024-06-09 13:06] VITALS: BP 108/67
--- NOTE | 2024-06-09 13:27 | NUR ---
06/09/24 1327 Kierra Fernández D/C INSTRUCTIONS GIVEN TO PT & PT'S SPOUSE, UNDERSTANDING VERBALIZED. PT LEAVING W/ SLING IN PLACE & ICE PACK. PT ALSO LEAVING W/ HARD COPY OF PAIN RX IN D/C PACKET. PT WHEELED TO BATHROOM TO VOID BEFORE D/C. PT HAS ALL BELONGINGS W/ HER. STEADY GAIT NOTED UPON TRANSFER FROM TO VEHICLE. NO VISIBLE SIGNS OF DISTRESS NOTED.
== END 2024-06-09 13:27 | disposition home or self-care (01) ==
LOC: ORSCSDS 08:06
PROVIDERS: Orthopaedic Surgery
PROC: 0RQT0ZZ Repair Left Carpometacarpal Joint, Open Approach (ICD-10-PCS; principal; 2024-06-09 09:45)
DX: M18.12 Unilateral primary osteoarthritis of first carpometacarpal joint, left hand (principal); E11.22 Type 2 diabetes mellitus with diabetic chronic kidney disease; I12.9 Hypertensive chronic kidney disease with stage 1 through stage 4 chronic kidney disease, or unspecified chronic kidney disease; N18.9 Chronic kidney disease, unspecified; G47.33 Obstructive sleep apnea (adult) (pediatric); J44.89 Other specified chronic obstructive pulmonary disease; E03.9 Hypothyroidism, unspecified; F41.9 Anxiety disorder, unspecified; F32.A Depression, unspecified; Z79.84 Long term (current) use of oral hypoglycemic drugs; Z79.899 Other long term (current) drug therapy; E66.9 Obesity, unspecified; Z68.30 Body mass index [BMI] 30.0-30.9, adult
CPT/HCPCS: 82947; C1713; J0690; J2250; J2371; J2704

== ENCOUNTER 2024-07-30 07:04 | Day surgery (SDC) | payer OTHER ==
[2024-07-30] MEDS ORDERED: Lactated Ringer's 1,000 ML IV ONE (07:20)
[2024-07-30] MEDS ORDERED: propofoL 50 ML IV ONE (07:21)
[2024-07-30] MEDS ORDERED: Lidocaine HCl 4% 5 ML SDA ONE (07:21)
[2024-07-30] MEDS ORDERED: Esmolol HCL 10 MG/ML 10ML VIAL ONE (07:39)
[2024-07-30] MEDS ORDERED: Midazolam HCl 1MG / ML 2ML Vial ONE (07:39)
--- NOTE | 2024-07-30 08:02 | NUR ---
07/30/24 0802 CRUZITO NAIDU PT CAME INTO PREOP DIAPHORETIC AND VOMITTING. PT C/O "FREEZING" REFUSING ICE PACK OR COLD WASH CLOTH. DR DUONG ORDERED 12 LEAD SHOWING SVT; VAGAL MANEUVER; BEARING DOWN WHILE LEGS UP AND LAYING WITH HEAD BELOW KNEES; ESMOLO GIVEN BRING PT OUT OF SVT. PT STILL TACHICARDIC AND HEART BLOCK ACCORDING TO SECOND EKG. PT BEING TAKEN BY WC TO ED AND TOLD TO F/U WITH HER DEPARTMENT SUPERVISOR.
[2024-07-30 08:49] VITALS: BP 109/91
== END 2024-07-30 08:56 | disposition other institution (70) ==
LOC: ORSCSDS 07:04
DX: R13.10 Dysphagia, unspecified (principal); R74.8 Abnormal levels of other serum enzymes; K76.0 Fatty (change of) liver, not elsewhere classified; R19.5 Other fecal abnormalities; Z53.9 Procedure and treatment not carried out, unspecified reason; I47.10 Supraventricular tachycardia, unspecified; E87.6 Hypokalemia; J44.89 Other specified chronic obstructive pulmonary disease; E11.9 Type 2 diabetes mellitus without complications; I11.0 Hypertensive heart disease with heart failure; I50.20 Unspecified systolic (congestive) heart failure; K21.9 Gastro-esophageal reflux disease without esophagitis; G47.30 Sleep apnea, unspecified; E78.5 Hyperlipidemia, unspecified; Z87.891 Personal history of nicotine dependence; Z88.8 Allergy status to other drugs, medicaments and biological substances; Z88.2 Allergy status to sulfonamides; Z88.1 Allergy status to other antibiotic agents; Z88.3 Allergy status to other anti-infective agents; Z79.890 Hormone replacement therapy; Z79.84 Long term (current) use of oral hypoglycemic drugs; Z79.899 Other long term (current) drug therapy
CPT/HCPCS: 80048; 82947; 83735; 84439; 84443; 85025; 93005; 93010; 96374; 96375; 99285-25; A9270; J2003; J2250; J2704

== ENCOUNTER → 2025-03-25 | Outpatient (CLI) | payer OTHER ==
[~2025-03-25] MED LIST changes: +CEPHALEXIN125 MG/5 M; +FARXIGA10 MG PO; +FLUT1DIS5; +FURO40 PO; +MELATONIN10 M6 PO; +METO50ER PO; +SPIR25 PO; +VOLTAREN ARTHRI20 GM
== END ==
LOC: LAB SHORT 17:18 → LAB 17:18
DX: L08.9 Local infection of the skin and subcutaneous tissue, unspecified (principal)
CPT/HCPCS: 87070; 87205

== ENCOUNTER 2025-04-01 09:33 | Day surgery (SDC) | payer OTHER ==
[~2025-04-01] VITALS: Ht 162.6 cm; Wt 81.9 kg
[~2025-04-01 09:33] MED LIST changes: -CEPHALEXIN125 MG/5 M
[2025-04-01] MEDS ORDERED: CEPHALEXIN125 MG/5 M (10:01)
[2025-04-01] MEDS ORDERED: Benzocaine Oral Spray 0.5ML UD ONE (10:12)
[2025-04-01] MEDS ORDERED: Ondansetron HCl 2 MG / ML 2ML Vial ONE (11:05)
[2025-04-01 12:07] VITALS: BP 119/80
== END 2025-04-01 12:05 | disposition home or self-care (01) ==
LOC: ORSCSDS 09:33
PROVIDERS: Internal Medicine Gastroenterology
PROC: 0DJ08ZZ Inspection of Upper Intestinal Tract, Via Natural or Artificial Opening Endoscopic (ICD-10-PCS; principal; 2025-04-01 11:00)
PROC: 0DJD8ZZ Inspection of Lower Intestinal Tract, Via Natural or Artificial Opening Endoscopic (ICD-10-PCS; principal; 2025-04-01 11:00)
DX: K74.60 Unspecified cirrhosis of liver (principal); R19.5 Other fecal abnormalities; K64.4 Residual hemorrhoidal skin tags; R13.10 Dysphagia, unspecified; K21.9 Gastro-esophageal reflux disease without esophagitis; I10 Essential (primary) hypertension; E78.5 Hyperlipidemia, unspecified; G47.33 Obstructive sleep apnea (adult) (pediatric); J44.89 Other specified chronic obstructive pulmonary disease; M79.7 Fibromyalgia; F41.9 Anxiety disorder, unspecified; E11.9 Type 2 diabetes mellitus without complications; E66.9 Obesity, unspecified; Z68.31 Body mass index [BMI] 31.0-31.9, adult; Z87.891 Personal history of nicotine dependence; Z79.84 Long term (current) use of oral hypoglycemic drugs; Z79.899 Other long term (current) drug therapy
CPT/HCPCS: 82947; A9270; J2405; J2704; J7120